=== PATIENT | female | born 1970 | race Caucasian/White ===

== ENCOUNTER 2019-07-31 05:29 | Emergency (ER) | payer BC, MEDICARE ==
[2019-07-31 06:05] LABS: #Basophils 0.1 thou/uL (0.0-0.2); #Eosinphils 0.2 thou/uL (0.0-0.7); #Monocytes 0.7 thou/uL (0.11-0.59); #Neutrophils 5.6 thou/uL (1.40-6.50); %Basophils 0.8 % (0.0-1.0); %Eosinophils 2.6 % (0.0-10.0); %Lymphocytes 22.8 % (21.0-51.0); %Monocytes 8.4 % (0.0-10.0); %Neutrophils 65.3 % (42.0-75.0); Hemoglobin 16.6 g/dL (12.0-16.0); Mean Corpuscular HGB CONC 34.6 g/dL (32.0-36.0); Mean Corpuscular Hemoglobin 33.4 pg (27.0-31.0); Mean Corpuscular Volume 96.5 fL (78.0-98.0); Mean Platelet Volume 7.7 fL (7.4-10.4); Platelet Count 356 thou/uL (130-400); Red Blood Cell (RBC) Count 4.97 mill/uL (4.20-5.40); White Blood Cell (WBC) Count 8.6 thou/uL (4.8-10.8)
[2019-07-31 06:20] LABS: Amphetamine Not Detected (NotDetected); Barbiturates Screen Not Detected (NotDetected); Benzodiazepine Screen Not Detected (NotDetected); Cocaine Metabolite Screen Not Detected (NotDetected); Medtox Control Line Valid? VALID (VALID); Medtox Reader # READER 1; Methadone Not Detected (NotDetected); Methamphetamine Not Detected (NotDetected); Opiate Screen Not Detected (NotDetected); Oxycodone Screen Not Detected (NotDetected); Phencyclidine (PCP) Not Detected (NotDetected); THC/Cannabinoid Screen Not Detected (NotDetected); Tricyclic Screen Not Detected (NotDetected)
[2019-07-31 06:25] LABS: ALT (SGPT) 21 U/L (8-55); AST (SGOT) 21 U/L (5-34); Albumin 4.3 g/dL (3.5-5.0); Alkaline Phosphatase 71 U/L (40-110); Anion Gap 17 mmol/L (10-20); BUN (Urea Nitrogen) 8 mg/dL (7.0-18.7); Bilirubin, Total 0.5 mg/dL (0.2-1.2); Calc. Creatinine Clearance 0 mL/min (70-130); Calcium 9.2 mg/dL (7.8-10.44); Carbon Dioxide 21 mmol/L (22-29); Chloride 101 mmol/L (98-107); Estimated GFR-MDRD 88; Globulin 3.2 g/dL (2.4-3.5); Glucose 111 mg/dL (70-105); Potassium 3.4 mmol/L (3.5-5.1); Protein, Total 7.5 g/dL (6.0-8.3); Sodium 136 mmol/L (136-145)
[2019-07-31 06:26] LABS: Acetaminophen Less than 6.0 mcg/mL (10.0-30.0); Alcohol Less than 10 mg/dL (Less than 10); Salicylate Less than 8.0 mg/dL (15.0-30.0)
[2019-07-31] MEDS ORDERED: DULoxetine 60 MG CAP PO SCH (09:00)
[2019-07-31] MEDS ORDERED: hydrOXYzine Pamoate 25 mg Capsule PO PRN (10:49)
[2019-07-31] MEDS ORDERED: Ibuprofen 600 MG TAB PO PRN (10:50)
[2019-07-31] MEDS ORDERED: traZODone HCl 50 MG TAB PO PRN (10:50)
[2019-07-31] MEDS ORDERED: Acetaminophen 325 MG TAB PO PRN (10:51)
[2019-07-31] MEDS ORDERED: Nicotine 14 MG PATCH ONE (10:55)
[2019-07-31] MEDS ORDERED: Nicotine 14 MG PATCH TOP SCH (11:00)
--- NOTE | 2019-08-01 15:03 | EKG ---
Test Reason : Blood Pressure : / mmHG Vent. Rate : 124 BPM Atrial Rate : 124 BPM P-R Int : 136 ms QRS Dur : 088 ms QT Int : 326 ms P-R-T Axes : 072 070 076 degrees QTc Int : 468 ms Sinus tachycardia Biatrial enlargement Nonspecific ST abnormality Abnormal ECG Confirmed by VIANEY WATTERS DO ([id number]), non linear editor TORI TOMLINSON ([id number] on 08/01/2019 3:02:59 PM Referred By: Confirmed By:VIANEY WATTERS DO
== END 2019-07-31 20:00 ==
LOC: ERS 05:29
DX: T42.6X2A Poisoning by other antiepileptic and sedative-hypnotic drugs, intentional self-harm, initial encounter (principal); I10 Essential (primary) hypertension; Z79.899 Other long term (current) drug therapy
CPT/HCPCS: 36415; 80053; 80306; 80307; 84443; 85025; 93005

== ENCOUNTER 2019-08-30 15:35 | Emergency (ER) | payer BC, MEDICARE ==
[~2019-08-30 15:35] MED LIST: Iopamidol-370 76% 500 ML 1 ML ONE
--- NOTE | 2019-08-30 16:11 | RAD ---
RADIOGRAPH CHEST 2 VIEWS: DATE: 08/30/2019 HISTORY: 48-year-old female with chest pain FINDINGS: There is no airspace density, pulmonary edema, pleural effusion, pneumothorax, or cardiomegaly. IMPRESSION: No acute cardiopulmonary findings.
[2019-08-30 16:16] LABS: #Basophils 0.1 thou/uL (0.0-0.2); #Lymphocytes 2.7 thou/uL (1.20-3.40); #Monocytes 0.6 thou/uL (0.11-0.59); #Neutrophils 4.5 thou/uL (1.40-6.50); %Basophils 1.1 % (0.0-1.0); %Eosinophils 11.6 % (0.0-10.0); %Lymphocytes 29.9 % (21.0-51.0); %Monocytes 6.7 % (0.0-10.0); %Neutrophils 50.6 % (42.0-75.0); Hemoglobin 14.1 g/dL (12.0-16.0); Mean Corpuscular HGB CONC 33.9 g/dL (32.0-36.0); Mean Corpuscular Hemoglobin 33.9 pg (27.0-31.0); Mean Platelet Volume 6.5 fL (7.4-10.4); Platelet Count 411 thou/uL (130-400); RBC Distribution Width 13.2 % (11.5-14.5); Red Blood Cell (RBC) Count 4.16 mill/uL (4.20-5.40); White Blood Cell (WBC) Count 8.9 thou/uL (4.8-10.8)
[2019-08-30 16:23] LABS: BHCG - Serum Negative (NEGATIVE); Pregs Control Background? CLEAR/WHITE (CLR/WHITE); Pregs Control Bar Appear? YES (CONTROL BAR)
[2019-08-30 16:37] LABS: ALT (SGPT) 17 U/L (8-55); AST (SGOT) 13 U/L (5-34); Albumin 3.8 g/dL (3.5-5.0); Alkaline Phosphatase 78 U/L (40-110); Anion Gap 16 mmol/L (10-20); BUN (Urea Nitrogen) 11 mg/dL (7.0-18.7); Bilirubin, Total 0.3 mg/dL (0.2-1.2); CK (CPK) 59 U/L (29-168); Calc. Creatinine Clearance 0 mL/min (70-130); Calcium 9.2 mg/dL (7.8-10.44); Carbon Dioxide 23 mmol/L (22-29); Chloride 107 mmol/L (98-107); Estimated GFR-MDRD 83; Globulin 2.9 g/dL (2.4-3.5); Glucose 114 mg/dL (70-105); Lipase 42 U/L (8-78); Potassium 4.6 mmol/L (3.5-5.1); Protein, Total 6.7 g/dL (6.0-8.3); Sodium 141 mmol/L (136-145)
[2019-08-30 17:40] LABS: Bilirubin Negative (Negative); Blood, Urine Negative (Negative); Clarity Clear (Clear); Glucose, Urine (Dipstick) Normal (Negative); Leukocyte Negative Leu/uL (Negative); Nitrite Negative (Negative); Protein, Urine (Dipstick) 10 mg/dL (Neg-Trace)
[2019-08-30] MEDS ORDERED: Ketorolac Tromethamine 30 MG/ML VIAL ONE (17:44)
[2019-08-30] MEDS ORDERED: Ondansetron PF 4 MG/2 ML Vial ONE (17:44)
--- NOTE | 2019-08-30 17:53 | ULT ---
BILATERAL LOWER EXTREMITY VENOUS DOPPLER ULTRASOUND: 08/30/19 HISTORY: Bilateral lower extremity pain. Left leg amputated below knee. TECHNIQUE: Gaitan scale ultrasound with color flow and spectral Doppler imaging of the deep venous systems of the lower extremities performed bilaterally. FINDINGS: There is good flow, compression and augmentation noted in the common femoral, femoral, and deep femor al veins on both sides and the right popliteal, posterior tibial veins and both the saphenofemoral ju nctions. IMPRESSION: No evidence of DVT in either lower extremity. POS: FRANCES
--- NOTE | 2019-08-30 18:23 | CT ---
CT BRAIN NONCONTRAST: 08/30/19 HISTORY: 48-year-old female with dizziness, nausea, and headache. FINDINGS: There is no midline shift or any other mass effect. There is no evidence of acute intracranial hemor rhage, large cortical infarct, obstructive hydrocephalus, or extraaxial fluid collection. The calvar ium is intact. IMPRESSION: No acute intracranial findings. jn [] POS: JIN
[2019-08-30] MEDS ORDERED: Aspirin 325 MG TAB ONE (18:38)
--- NOTE | 2019-08-30 18:46 | CT ---
CT PULMONARY ANGIOGRAM WITH IV CONTRAST AND 3D POSTPROCESSIN08/30/19 HISTORY: 48-year-old female with chest pain, dizziness FINDINGS: there is good contrast opacification of the pulmonary arterial vasculature without filling defects to suggest pulmonary embolism. The thoracic aorta is well opacified without aneurysmal dissection. No p leural or pericardial effusions are seen. There is an aberrant right subclavian artery. No pneumothor aces or lobar consolidation are seen. There are minimal dependent changes in the lung bases. There ar e a few scattered peripheral lung nodules. The largest on the left is in the left lower lobe measurin g 6 mm and in the right middle lobe measuring 6 mm. There are degenerative changes in the spine. Uppe r abdominal tomograms are unremarkable. IMPRESSION: 1. No CT evidence of pulmonary embolism. 2. Small pulmonary nodules. RECOMMENDATIONS: Six month follow-up CT scan of the chest is recommended to monitor the lung nodules. Code T and Code LN POS: HARRIS
--- NOTE | 2019-09-11 16:11 | EKG ---
Test Reason : Blood Pressure : / mmHG Vent. Rate : 106 BPM Atrial Rate : 106 BPM P-R Int : 152 ms QRS Dur : 086 ms QT Int : 332 ms P-R-T Axes : 064 051 053 degrees QTc Int : 441 ms Sinus tachycardia Possible Left atrial enlargement Borderline ECG Confirmed by JANY CARDOZA ([id number]), design editor TORI TOMLINSON ([id number]) on 09/11/2019 4:10:51 PM Referred By: Confirmed By:JANY CARDOZA
== END 2019-08-30 19:28 | disposition home or self-care (01) ==
LOC: ERS 15:35
DX: R07.9 Chest pain, unspecified (principal); R42 Dizziness and giddiness; R51 Headache; R11.0 Nausea; I10 Essential (primary) hypertension; F42.9 Obsessive-compulsive disorder, unspecified; F43.10 Post-traumatic stress disorder, unspecified; I34.1 Nonrheumatic mitral (valve) prolapse; F17.210 Nicotine dependence, cigarettes, uncomplicated; F41.9 Anxiety disorder, unspecified; Z79.899 Other long term (current) drug therapy; W05.0XXA Fall from non-moving wheelchair, initial encounter
CPT/HCPCS: 36415; 70450; 71046; 71275; 80053; 81003; 82550; 83690; 84484; 84703; 85025; 93005; 93970; 94760; 96361; 96374; J1885; J2405; Q9967